=== PATIENT | female | born 1995 | race Caucasian/White ===

== ENCOUNTER 2019-05-13 08:51 | Outpatient (CLI) | payer OTHER | END 2019-05-13 23:59 | disposition home or self-care (01) | LOC: RAD 08:51 | PROVIDERS: ATTEND Obstetrics & Gynecology | DX: N93.0 Postcoital and contact bleeding (principal) | CPT/HCPCS: 76830; 76856 ==

== ENCOUNTER 2020-04-14 07:38 | Day surgery (SDC) | payer BC, OTHER ==
[2020-04-10 15:05] LABS: BASOPHILS % (AUTO) 0.6 % (0-1); EOSINOPHILS # (AUTO) 0.1 X10'3 (0-0.9); EOSINOPHILS % (AUTO) 1.3 % (0-6); LYMPHOCYTES # (AUTO) 2.4 X10'3 (1.1-4.8); LYMPHOCYTES % (AUTO) 37.3 % (21-51); MEAN CORPUSCULAR HEMOGLOBIN 31.1 PG (27.0-31.0); MEAN CORPUSCULAR HGB CONC 34.1 g/dL (33.0-36.5); MEAN CORPUSCULAR VOLUME 91.2 FL (78-98); MEAN PLATELET VOLUME 8.1 FL (7.4-10.4); MONOCYTES # (AUTO) 0.4 X10'3 (0-0.9); MONOCYTES % (AUTO) 6.3 % (2-12); NEUTROPHILS # (AUTO) 3.6 X10'3 (1.8-7.7); NEUTROPHILS % (AUTO) 54.5 % (42-75); PRE OP PLATELET COUNT 266 X10'3 (140-440); RED BLOOD COUNT 4.83 X10'6 (4.20-5.60)
[2020-04-10 15:05] LABS: CLARITY,URINE CLEAR (Clear); COLOR,URINE YELLOW (Yellow); GLUCOSE, URINE NEGATIVE (Neg); KETONES,URINE NEGATIVE (Neg); LEUKOCYTE ESTERASE ,URINE NEGATIVE (Neg); NITRITES, URINE NEGATIVE (Neg); OCCULT BLOOD,URINE NEGATIVE (Neg); PH,URINE 5.5 (4.8-8.0); PROTEIN,URINE NEGATIVE (Neg); UROBILINOGEN,URINE 0.2 E.U/dL (0.2-1.0)
[2020-04-10 15:09] LABS: UA COLLECTION TYPE CLN CATCH MIDSTREAM
[2020-04-10 15:17] LABS: PRE OP PROTIME 10.7 SECONDS (9.0-12.0)
[2020-04-10 15:20] LABS: ALBUMIN 4.3 G/DL (3.4-5.0); ALBUMIN/GLOBULIN RATIO 1.4 (1.1-1.5); ALKALINE PHOSPHATASE 78 IU/L (46-116); BLOOD UREA NITROGEN 9 MG/DL (7-18); CHLORIDE 106 MMOL/L (99-107); CREATININE 0.75 MG/DL (0.40-0.90); PRE OP ALT 23 U/L (30-65); PRE OP ANION GAP 8 (8-16); PRE OP AST 19 U/L (10-37); PRE OP BILIRUB, TOTAL 0.5 MG/DL (0.0-1.0); PRE OP GLUCOSE 77 MG/DL (70-104); PRE OP POTASSIUM 3.7 MMOL/L (3.4-5.1); PRE OP SODIUM 141 MMOL/L (135-145); TOTAL CARBON DIOXIDE 27.5 MMOL/L (24-32); TOTAL PROTEIN 7.3 G/DL (6.4-8.2); eGFR > 90 ML/MIN
[2020-04-10 15:30] LABS: HCG SERUM QL NEGATIVE
[~2020-04-14] VITALS: Ht 162.6 cm; Wt 92.5 kg
[2020-04-14] VITALS (8 sets, daily range): BP systolic 118–137; BP diastolic 59–80
[~2020-04-14 07:38] MED LIST: MEDR150V IM; ceFAZolin 2gm in dextrose, iso 50 ML IV ONE; cefazolin/dext.iso 2gm/100ml 100 ML IV ONE; famotidine 20mg tablet PO ONE; ringers solution, lacted 1,000 ML IV SCH
[2020-04-14] MEDS ORDERED: midazolam 2 mg/2 ml injection ONE (08:48)
[2020-04-14] MEDS ORDERED: fentaNYL/PF 50MCG/1 ML 2ML syringe ONE (08:48)
[2020-04-14] MEDS ORDERED: propofol inj 20 ML IV ONE (08:49)
[2020-04-14] MEDS ORDERED: LIDOcaine 2% (20mg/ml) 5ml vial ONE (08:49)
[2020-04-14] MEDS ORDERED: ondansetron/PF 4mg/2ml inj ONE (08:49)
[2020-04-14] MEDS ORDERED: sevoflurane 250ml liquid IH ONE (08:50)
[2020-04-14] MEDS ORDERED: dexamethasone sod phosphate 10mg/ml inj ONE (08:50)
[2020-04-14] MEDS ORDERED: ringers solution, lacted 1,000 ML IV SCH (09:12)
[2020-04-14] MEDS ORDERED: morphine 4 MG/ML inj SYRINge IV PRN (09:15)
[2020-04-14] MEDS ORDERED: morphine 2 MG/ML inj. syringe IV PRN (09:15)
[2020-04-14] MEDS ORDERED: hydrALAZINE 20mg/ml inj. IV PRN (09:15)
[2020-04-14] MEDS ORDERED: fentaNYL/PF 50MCG/1 ML 2ML syringe IV PRN ×2 (09:15)
[2020-04-14] MEDS ORDERED: labetalol 20mg/4ml (5mg/ml) syringe IV PRN (09:15)
[2020-04-14] MEDS ORDERED: ondansetron/PF 4mg/2ml inj IV PRN (09:15)
[2020-04-14] MEDS ORDERED: LIDOcaine 1% 30ml preserv. free vial ONE (09:17)
--- NOTE | 2020-04-14 09:35 | NUR ---
Received from OR via BED , accompanied by Anesthesiologist DR WIN and report given by Anesthesiolgist. PATIENT WAKING UP, DENIES, V/S WNL, NEUROVASCULAR CHECKS INTACT, 20G PIV RUE, SCD ON, WITH PERIPAD WITH SCANT DRAINAGE CDI.
[2020-04-14] MEDS ORDERED: LIDOcaine 2% 5ml jelly MM ONE (09:51)
--- NOTE | 2020-04-14 10:25 | NUR ---
PATIENT A&OX4, DENIES, V/S WNL, NEUROVASCULAR CHECKS INTACT, 20G PIV RUE D/C, SCD OFF, WITH PERIPAD WITH SCANT DRAINAGE CDI. PATIENT HAS VOIDED AND GIVEN SCRIPT FOR [facility]. I HAVE REVIEWED D/C INSTRUCTIONS WITH PATIENT AND FAMILY AND THEY HAVE VERBALIZED UNDERSTANDING. PATIENT D/C HOME WITH FAMILY TO TRANSPORT AND ALL BELONGINGS..
== END 2020-04-14 10:25 | disposition home or self-care (01) ==
LOC: PAS 07:38
PROVIDERS: ATTEND Obstetrics & Gynecology
DX: N93.0 Postcoital and contact bleeding (principal); N84.1 Polyp of cervix uteri; J45.909 Unspecified asthma, uncomplicated; Z79.899 Other long term (current) drug therapy; Z88.8 Allergy status to other drugs, medicaments and biological substances; Z11.59 Encounter for screening for other viral diseases
CPT/HCPCS: 36415; 58558; 80053; 81003; 82948; 84703; 85025; 85610; 85730; 86885; 86900; 86901; 87635; J1100; J2001; J2250; J2405; J2704; J3010; J7030; A4355; A4618; A6258; J7120